=== PATIENT | female | born 1950 | race Caucasian/White ===

== ENCOUNTER 2020-05-20 12:25 | Outpatient (CLI) | payer MEDICARE, SELFPAY ==
--- NOTE | ~2020-05-20 | MM_ITS ---
EXAMINATION: MM screening [facility] BI w felix HISTORY: Screening mammogram TECHNIQUE: Craniocaudal and mediolateral oblique 3-D tomosynthesis images were obtained and synthetic 2-D images were generated. CAD analysis was submitted and interpreted. COMPARISON: 04/02/2019, 06/21/2017 BREAST PARENCHYMAL COMPOSITION: The breasts are heterogeneously dense, which may obscure small masses . FINDINGS: There is no evidence of suspicious mass, calcification, or architectural distortion to sugg est malignancy in either breast. There has been no suspicious interval change. IMPRESSION: 1. No mammographic evidence of malignancy. 2. Recommend routine screening mammography in one year. BI-RADS Category 1: Negative Reviewed, dictated and finalized at location A.
--- NOTE | ~2020-05-20 | DEXA_ITS ---
BMD(1) Young-Adult(2) Age-Matched(3) Region (g/cm2) T-score Z-score WHO Classification L1 0.986 -1.3 0.5 Osteopenia L2 1.367 1.3 3.1 Normal L3 1.514 2.4 4.2 Normal L4 1.513 2.3 4.1 Normal L1-L4 1.355 1.3 3.1 Normal Trend: L1-L4 Change vs Change vs Measured Age BMD(1) Baseline Previous Date (years) (g/cm2) (%) (%) 05/20/2020 [age] 1.355 5.2* 0.4 04[age]05/2018 68.0 1.350 4.8* 4.8* 10/03/2015 [age] 1.288 baseline - * - Indicates significant change based on 95% confidence interval. 1 - Statistically 68% of repeat scans fall within 1SD (+- 0.010 g/cm2 for AP Spine L1-L4) 2 - [facility] (Combined NHANES (ages 20-30) / [place] (ages 20-40)) AP Spine Reference Population (v112) 3 - Matched for Age, Weight (females 25-100 kg), Ethnic 11 - World Health Organization - Definition of Osteoporosis and Osteopenia for Women: Normal = T-score at or above -1.0 SD; Osteopenia = T-score between -1.0 and -2.5 SD; Osteoporosis = T-score at or below -2.5 SD; (WHO definitions only apply when a young healthy Women reference database is used to determine T-scores.) Printed: 05/20/2020 3:14:39 PM (13.60)76:3.00:50.00:12.0 0.00:9.78 0.60x1.05 18.5:%Fat=13.7% 0.00:0.00 0.00:0.00 Filename: [id number] Scan Mode: Standard;OneScan 37.0 Sprout [id number] BMD(1) Young-Adult(2,7) Age-Matched(3) Region (g/cm2) T-score Z-score WHO Classification Neck Left 0.802 -1.7 0.0 Osteopenia Right 0.936 -0.7 1.0 Normal Mean 0.869 -1.2 0.5 Osteopenia Difference 0.134 1.0 1.0 - Total Left 0.906 -0.8 0.7 Normal Right 0.972 -0.3 1.2 Normal Mean 0.939 -0.5 0.9 Normal Difference 0.067 0.5 0.5 - Hip [place] Length Comparison (mm) (Right = 115.4 mm) (Mean = 106.8 mm) (Left = 115.1 mm) Trend: Total Mean Change vs Change vs Measured Age BMD(1) Baseline Previous Date (years) (g/cm2) (%) (%) 05/20/2020 70.2 0.939 baseline - 1 - Statistically 68% of repeat scans fall within 1SD (+- 0.010 g/cm2 for DualFemur Total) 2 - [place] (Combined NHANES (ages 20-30) / [place] (ages 20-40)) Femur Reference Population (v112) 3 - Matched for Age, Weight (females 25-100 kg), Ethnic 7 - DualFemur Total T-score difference is 0.5. Asymmetry is None. 11 - World Health Organization - Definition of Osteoporosis and Osteopenia for Women: Normal = T-score at or above -1.0 SD; Osteopenia = T-score between -1.0 and -2.5 SD; Osteoporosis = T-score at or below -2.5 SD; (WHO definitions only apply when a young healthy Women reference database is used to determine T-scores.) Printed: 05/20/2020 3:14:40 PM (13.60); Filename: [id number]; Right Femur; 17.6:%Fat=22.1%; Neck Angle (deg)= 51; Scan Mode: Standard 37.0 uGy; Left Femur; 17.0:%Fat=24.1%; Neck Angle (deg)= 59; Scan Mode: Standard 37.0 uGy Smartsy [id number] Dear Ubaldo Galindo, Your patient Sonia Oquendo completed a BMD test on 05/20/2020 using the Smartsy DXA System (analysis version: 13.60) manufactured by [employer]. The following summarizes the results of our evaluation. PATIENT BIOGRAPHICAL: Name: Sonia Oquendo Date: 1950 H
== END 2020-05-20 12:26 | disposition home or self-care (01) ==
LOC: CHSIMG 12:30
PROVIDERS: PCP Internal Medicine; Visit Provider Internal Medicine
DX: Z12.31 Encounter for screening mammogram for malignant neoplasm of breast (principal); M81.0 Age-related osteoporosis without current pathological fracture
CPT/HCPCS: 77063; 77067; 77080

== ENCOUNTER 2021-06-12 14:21 | Outpatient (CLI) | payer MEDICARE, SELFPAY ==
--- NOTE | ~2021-06-12 | MM_ITS ---
EXAMINATION: MM screening [facility] BI w felix HISTORY: Screening mammogram TECHNIQUE: Craniocaudal and mediolateral oblique 3-D tomosynthesis images were obtained and synthetic 2-D images were generated. CAD analysis was submitted and interpreted. COMPARISON: 05/20/2020, 04/02/2019, 06/21/2017 bilateral digital screening mammogram examinations BREAST PARENCHYMAL COMPOSITION: The breasts are heterogeneously dense, which may obscure small masses . FINDINGS: There is no evidence of suspicious mass, calcification, or architectural distortion to sugg est malignancy in either breast. There has been no suspicious interval change. IMPRESSION: 1. No mammographic evidence of malignancy. 2. Recommend routine screening mammography in one year. BI-RADS Category 1: Negative Reviewed, dictated and finalized at location A.
== END 2021-06-12 14:22 | disposition home or self-care (01) ==
LOC: CHSIMG 14:23
PROVIDERS: PCP Internal Medicine; Visit Provider Internal Medicine
DX: Z12.31 Encounter for screening mammogram for malignant neoplasm of breast (principal)
CPT/HCPCS: 77063; 77067

== ENCOUNTER 2021-07-29 17:36 | Emergency (ER) | payer MEDICARE, SELFPAY ==
[2021-07-29 17:40] VITALS: BP 119/80; PULSE 94; RESP 20; TEMP 36.3; O2SAT 100
--- NOTE | 2021-07-29 18:17 | ED.GENADULT ---
HPI - General Adult General Chief complaint: Upper Respiratory Infection Stated complaint: tongue is coated white,congestion Source: patient and family Mode of arrival: ambulatory Limitations: no limitations History of Present Illness HPI narrative: Sonia is a 71F with a PMH of hypothyroidism that presented to the emergency department with 10 days of worsening URI symptoms. She has had worsening sinus congestion, rhinorrhea, fullness in her left ear, post nasal drip and a cough. She denies fevers, chills, N/V, CP and SOB. She is not vaccinated against COVID but denies exposure. Related Data Home Medications Medication Instructions Recorded Confirmed levothyroxine 88 mcg PO DAILY 07/29/21 07/29/21 Allergies Allergy/AdvReac Type Severity Reaction Status Date / Time Sulfa (Sulfonamide Allergy Unknown Unverified 07/15/14 14:59 Antibiotics) Review of Systems Constitutional: Constitutional: Denies chills, Denies fatigue, Denies fever(s) and Denies weakness Eyes: Eyes: Reports no additional eye complaints ENT: Reports as per HPI Cardiovascular: Cardiovascular: Reports no additional cardiovascular complaints Respiratory: Respiratory: Reports no additional respiratory complaints Gastrointestinal: Gastrointestinal: Reports no additional gastrointestinal complaints Genitourinary: Genitourinary: Reports no additional female genitourinary complaints Musculoskeletal: Musculoskeletal: Reports no additional musculoskeletal complaints Integumentary/Breasts: Skin/Breast: Reports system reviewed and no additional complaints, except as docu Neurologic: Reports system reviewed and no additional complaints, except as documented Psychiatric: Psychiatric: Reports no additional psychiatric complaints Endocrine: Endocrine: Reports no additional endocrine complaints Hematologic/Lymphatic: Hematologic/Lymphatic: Reports no additional hematologic/lymphatic complaints Allergic/Immunologic: Allergic/Immunologic: Reports no additional allergic/immunologic complaints Exam Const: General: no acute distress and alert Orientation/consciousness: patient oriented x3 Limitations: No altered mental status HENMT: Head: normal to inspection Other: normocephalic, atrauamtic. Air fluid levels behind the left TM. TTP over the frontal sinuses and maxillary sinuses Eyes: Conjunctivae: conjunctivae normal Pupils: Equal, round and reactive pupils present Neck: Neck: normal visual inspection Chest: Chest palpation & inspection: normal inspection of the chest Resp: Effort & Inspection: normal respiratory effort, not labored and not tachypneic Auscultation: clear to auscultation bilaterally Cardio: Rate: regular rate Rhythm: regular rhythm Heart sounds: no murmurs : General: Yes no CVA tenderness Skin: Other: maculopapular rash over the stomach and low back Neuro: General: patient oriented x3 and moves all extremities Extrem: General: normal to inspection Psych: Appearance: grossly normal Mental Status: mental status grossly normal Course Course Emergency Course: Ordered COVID test. COVID positive Vital Signs Vital signs: Vital Signs Temperature 97.4 F L 07/29/21 17:40 Pulse Rate 94 07/29/21 17:40 Respiratory Rate 20 07/29/21 17:40 Blood Pressure 119/80 07/29/21 17:40 Pulse Oximetry 100 07/29/21 17:40 Temperature 97.4 F L 07/29/21 17:40 Pulse Rate 94 07/29/21 17:40 Respiratory Rate 20 07/29/21 17:40 Blood Pressure 119/80 07/29/21 17:40 Pulse Oximetry 100 07/29/21 17:40 Medical Decision Making Vital Signs Vital Signs: Vital Signs Temperature 97.4 F L 07/29/21 17:40 Pulse Rate 94 07/29/21 17:40 Respiratory Rate 20 07/29/21 17:40 Blood Pressure 119/80 07/29/21 17:40 Pulse Oximetry 100 07/29/21 17:40 Temperature 97.4 F L 07/29/21 17:40 Pulse Rate 94 07/29/21 17:40 Respiratory Rate 20 07/29/21 17:40 Blood Pressure 119/80 07/29/21 17:40 P
[2021-07-29 18:54] LABS: SARS-CoV-2 Ag Positive (Negative)
== END 2021-07-29 19:06 | disposition home or self-care (01) ==
PROVIDERS: Emergency Provider Family Medicine; PCP Internal Medicine
DX: U07.1 COVID-19 (principal)
CPT/HCPCS: 87426; 99282; 99283; C9803

== ENCOUNTER 2022-07-21 09:30 | Outpatient (CLI) | payer MEDICARE, SELFPAY ==
--- NOTE | ~2022-07-21 | DEXA_ITS ---
Bone Density Report Name: SHIKHA OLIVEIRA Age: 72 Sex: Female Ethnicity: White Date of : 1950 Indication: postmenopausal; screening for osteoporosis; height loss; Referring Provider: Ubaldo Galindo Study: Bone densitometry was performed. Exam Date: July 21, 2022 Accession number: [id number] Bone Density: Region BMD T-score Z-score Classification AP Spine(L1, L2, L3) 1.077 0.5 2.6 Normal Femoral Neck (Left) 0.700 -1.3 0.5 Osteopenia Total Hip (Left) 0.825 -1.0 0.6 Normal Femoral Neck (Right) 0.778 -0.6 1.2 Normal Total Hip (Right) 0.897 -0.4 1.1 Normal Femoral Neck Mean 0.739 -1.0 0.8 Normal Total Hip Mean 0.861 -0.7 0.9 Normal World Health Organization criteria for BMD impression classify patients as: Normal (T-score at or above -1.0), Osteopenia (T-score between -1.0 and -2.5), or Osteoporosis (T-score at or below -2.5). 10-year Fracture Risk(1): Major Osteoporotic Fracture 8.9% Hip Fracture 1.2% Reported Risk Factors: [place] (), Neck BMD=0.700, BMI=22.3 (1) FRAX(R) Version 3.08. Fracture probability calculated for an untreated patient. Fracture probability may be lower if the patient has received treatment. Clinical Information Provided by Patient: Has used the following medications: Vitamin D, levothyroxine Patient maximum height was 66 Menopause Age: 54 Drinks caffeinated beverages Onset of menses at age 16 Number of children 2 Impression: The patient has low bone mass, based on the Left Femoral Neck T-score. Discussion: BONE DENSITY IS LOW AT ONE OR MORE SKELETAL SITES. This patient's lowest T-score is low at one or more skeletal sites. It meets the World Health Organization's (WHO) criteria for ?low bone mass? (T-score between -1.0 and -2.5). The patient's 10-year risk of fracture as calculated by FRAX is less than the threshold where pharmacological therapy is recommended by the National Osteoporosis Foundation (NOF). However, all treatment decisions require clinical judgment and consideration of individual patient factors, including patient preferences, comorbidities, previous drug use, risk factors not captured in the FRAX model (e.g., frailty, falls, vitamin D deficiency, increased bone turnover, interval significant decline in bone density) and possible under or overestimation of fracture risk by FRAX. The patient should follow a healthful lifestyle (good nutrition with adequate calcium and vitamin D, and appropriate weight-bearing exercise). Follow-Up: Consider repeating this study in 2 to 3 years to reassess this patient's status, or sooner if there is some new clinical indication. Reported by: Dr. Vimal Bauer on 07/21/2022 10:06:00 AM. Reviewed, dictated and final
--- NOTE | ~2022-07-21 | MM_ITS ---
EXAMINATION: MM screening [facility] BI w felix HISTORY: Screening mammogram TECHNIQUE: Craniocaudal and mediolateral oblique 3-D tomosynthesis images were obtained and synthetic 2-D images were generated. CAD analysis was submitted and interpreted. COMPARISON: 06/12/2021, 05/20/2020, 04/02/2019 bilateral screening mammogram examinations BREAST PARENCHYMAL COMPOSITION: The breasts are heterogeneously dense, which may obscure small masses . FINDINGS: There is no evidence of suspicious mass, calcification, or architectural distortion to sugg est malignancy in either breast. There has been no suspicious interval change. IMPRESSION: 1. No mammographic evidence of malignancy. 2. Recommend routine screening mammography in one year. BI-RADS Category 1: Negative Reviewed, dictated and finalized at location A. 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
== END 2022-07-21 09:31 | disposition home or self-care (01) ==
LOC: CHSIMG 09:31
PROVIDERS: PCP Internal Medicine; Visit Provider Internal Medicine
DX: M81.0 Age-related osteoporosis without current pathological fracture (principal); Z12.31 Encounter for screening mammogram for malignant neoplasm of breast
CPT/HCPCS: 77063; 77067; 77080

== ENCOUNTER 2024-10-05 10:42 | Outpatient (CLI) | payer MEDICARE, SELFPAY ==
--- NOTE | ~2024-10-05 | MM_ITS ---
EXAMINATION: MM screening [facility] BI w felix HISTORY: Screening TECHNIQUE: Craniocaudal and mediolateral oblique 3-D tomosynthesis images were obtained and synthetic 2-D images were generated. CAD analysis was submitted and interpreted. COMPARISON: Comparison to multiple prior studies sequentially, with oldest reviewed study dated 05/24. BREAST PARENCHYMAL COMPOSITION: Dense: The breasts are extremely dense, which lowers the sensitivity of mammography. FINDINGS: There is no evidence of suspicious mass, calcification, or architectural distortion to sugg est malignancy in either breast. There has been no suspicious interval change. IMPRESSION: 1. No mammographic evidence of malignancy. 2. Recommend routine screening mammography in one year. BI-RADS Category 1: Negative Reviewed, dictated and finalized at location B. VISUAL DESIGNER
--- NOTE | ~2024-10-05 | XR_ITS ---
HISTORY: LT HAND PAIN RADIATES UP TO SHOULDER [id number] COMPARISON: None TECHNIQUE: 3 views of the left hand were performed. FINDINGS: No acute fracture is identified. 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 Degenerative disease is identified within the first carpometacarpal joint space. The remaining visualized joint spaces are preserved. The carpal arcs are intact. Mild radiocarpal joint space narrowing with sclerosis of the distal radius is present. Bone mineralization is age-appropriate No significant soft tissue swelling. No radiopaque foreign body is identified. IMPRESSION: Degenerative disease, without acute fracture or dislocation within the left hand, as detailed above. Reviewed, dictated and finalized at location A. SCRIPT FRONT END DEVELOPER IMPRESSION: Degenerative disease, without acute fracture or dislocation within the left marsh d, as detailed above.
--- NOTE | ~2024-10-05 | DEXA_ITS ---
Bone Density Report Name: SHIKHA OLIVEIRA Age: 74 Sex: Female Ethnicity: White Date of : 1950 Indication: hyperparathyroidism; Referring Provider: Ubaldo Galindo Study: Bone densitometry was performed. Exam Date: October 05, 2024 Accession number: [id number] Bone Density: Region BMD T-score Z-score Classification AP Spine(L1, L2, L3) 1.084 0.6 2.8 Normal Femoral Neck (Left) 0.683 -1.5 0.4 Osteopenia Total Hip (Left) 0.843 -0.8 0.8 Normal Femoral Neck (Right) 0.762 -0.8 1.2 Normal Total Hip (Right) 0.903 -0.3 1.3 Normal Femoral Neck Mean 0.723 -1.1 0.8 Osteopenia Total Hip Mean 0.873 -0.6 1.1 Normal World Health Organization criteria for BMD impression classify patients as: Normal (T-score at or above -1.0), Osteopenia (T-score between -1.0 and -2.5), or Osteoporosis (T-score at or below -2.5). 10-year Fracture Risk(1): Major Osteoporotic Fracture 9.6% Hip Fracture 1.7% Reported Risk Factors: [place] (), Neck BMD=0.683, BMI=21.0 (1) FRAX(R) Version 3.08. Fracture probability calculated for an untreated patient. Fracture probability may be lower if the patient has received treatment. Previous Exams: Region Exam Age BMD T-score BMD Change BMD Change Date g/cm2 vs Baseline vs Previous AP Spine (L1-L3) 10/05/2024 74 1.084 0.6 -0.032 (-2.8%) 0.008 (0.7%) 07/21/2022 72 1.077 0.5 -0.039 (-3.5%) -0.067 (-5.8%) 05/20/2020 70 1.143 1.1 0.027 (2.5%)*! -0.012 (-1.0%) 04/05/2018 68 1.155 1.2 0.039 (3.5%)*! 0.039 (3.5%)* 10/03/2015 65 1.116 0.9 Total Hip(Left) 10/05/2024 74 0.843 -0.8 -0.019 (-2.2%) 0.018 (2.1%) 07/21/2022 72 0.825 -1.0 -0.037 (-4.3%) -0.017 (-2.1%) 05/20/2020 70 0.843 -0.8 -0.019 (-2.2%) -0.015 (-1.8%) 04/05/2018 68 0.858 -0.7 -0.004 (-0.5%) -0.004 (-0.5%) 10/03/2015 65 0.862 -0.7 Total Hip(Right) 10/05/2024 74 0.903 -0.3 -0.004 (-0.4%) 0.007 (0.7%) 07/21/2022 72 0.897 -0.4 -0.011 (-1.2%) -0.011 (-1.2%) 05/20/2020 70 0.907 -0.3 *Denotes significance at 95% confidence level, LSC for AP Spine = 0.022 g/cm2, LSC for Total Hip = 0.027 g/cm2 # Denotes dissimilar scan types or analysis methods Clinical Information Provided by Patient: Has used the following medications: Vitamin D Has the following medical conditions: Hyperparathyroidism Patient maximum height was 66 Menopause Age: 54 Drinks caffeinated beverages Onset of menses at age 15 Number of children 2 Impression: The patient has low bone mass, based on the Left Femoral Neck T-score. No significant bone loss was observed. Discussion: BONE DENSITY IS LOW AT ONE OR MORE SKELETAL SITES. This patient's lowest T-score is low at one or more skeletal sites. It meets the World Health Organization's (WHO) criteria for ?low bone mass? (T-score between -1.0 and -2.5). The patient's 10-year risk of fracture as calculated by FRAX is less than the threshold where pharmacological therapy is recommended by the National Osteoporosis Foundation (NOF). However, all treatment decisions require clinical judgment and consideration of individual patient factors, including patient preferences, comorbidities, previous drug use, risk factors not captured in the FRAX model (e.g., frailty, falls, vitamin D deficiency, increased bone turnover, interval significant decline in bone density) and possible under or overestimation of fracture risk by FRAX. The patient should follow a healthful lifestyle (good nutrition with adequate calcium and vitamin D, and appropriate weight-bearing exercise). Follow-Up: Consider repeating this study in 2 to 3 years to reassess this patient's status, or sooner if there is some new clinical indication. Reported by: LEDY on 10/05/2024 11:12:00 AM. Reviewed, dictated and finalized at location A.
--- OUTSIDE RECORDS SUMMARY | 2024-10-05 10:52 | XMS_ITS | Patient Health Summary ---
Author Organization [facility] Address [address] [place] [address] Care Team Providers Care Statistician Name Role Phone Unavailable Primary Care Provider Unavailabl e Note from [facility],non-owned Affiliates and Associated Physician Practices is amultiple site organization consisting of ambulatory clinics and hospital sitesin [place], [place], [place] and [place]. This disclosure is being madepursuant to the Care Everywhere program and may not contain all information available regarding this patient. Last updated 18.[facility] Allergies No known active allergies Medications * Be aware that medications may not be up to date on this document. Alwaysverify current medications with the patient. * azelastine (ASTELIN) 0.1 % nasal spray(Started 11/04/2021) * fluticasone propionate (FLONASE) 50 MCG/ACT nasal spray(Started 08/26/2021) * levothyroxine (SYNTHROID) 88 MCG tablet(Started 12/08/2021) Take 1 tablet by mouth once daily * omeprazole (PRILOSEC) 20 MG capsule(Started 12/09/2021) Take 1 capsule by mouth once daily * pseudoephedrine (NEXAFED) 30 MG tablet Take 30 mg by mouth every 6 hours as needed for Nasal Congestion * acetaminophen (TYLENOL) 500 MG tablet Take 500 mg by mouth once daily as needed for Fever or Pain Maximum allowable Acetaminophen amount = 4 Grams (4000 mg) / 24 hours. * fluconazole (DIFLUCAN) 150 MG tablet(Started 02/16/2022) Take 1 tablet daily for 10 days, may refill x 1 1 refill by 02/16/2023 Social History Tobacco Use Types Packs/Day Years Used Date Smoking Tobacco: Never Smokeless Tobacco: Never Sex and Gender Information Value Date Recorded Sex Assigned at Not on file Gender Identity Not on file Sexual Orientation Not on file Last Filed Vital Signs Vital Sign Reading Time Taken Comments Blood Pressure 130/81 02/16/2022 8:43 AM CDT Pulse 52 02/16/2022 8:43 AM CDT Temperature 36.7 C (98.1 F) 02/16/2022 8:43 AM CDT Respiratory Rate - - Oxygen Saturation - - Inhaled Oxygen Concentration - - Weight 60.8 kg (134 lb) 02/16/2022 8:43 AM CDT Height 167.6 cm (5' 6 ) 02/16/2022 8:43 AM CDT Body Mass Index 21.63 02/16/2022 8:43 AM CDT Procedures * AZ LARYNGOSCOPY,FLEX FIBER,DIAGNOSTIC(Performed 02/16/2022) Performed for Dysphonia Results * AZ LARYNGOSCOPY,FLEX FIBER,DIAGNOSTIC (02/16/2022 9:23 AM CDT) Narrative Johnnie Gauthier MD - 02/16/2022 9:23 AM CDT Johnnie Gauthier MD 02/16/2022 10:01 AM Procedure Note Endoscopy Type: Laryngoscopy without stroboscopy Endoscope: Flexible 4mm Scope Anesthesia: Lidocaine 2% and Neosynephrine 1/2% (nasal) Procedure Details: The patient was sitting upright in a chair with the head in a slightly anterior sniffing position. The topical anesthesia was administered and then adequate time was allowed for an anesthetic effect. The endoscope was passed thru the bilateral nasal cavities. The tip of the endoscope was positioned in the oropharynx which allowed a complete view of the base of tongue, vallecula, pyriform recesses, epiglottis, bilateral true and false vocal folds, the interarytenoid and post cricoid region, and the immediate subglottis. Findings: TVF mobile bilaterally and without significant bowing or atrophy. TVF covered with small flecks of mucus No significant reflux associated changes. No masses or mucosal lesions. Airway patent Condition: Stable. Patient tolerated procedure well. Complications: None The attending was present for and participated in critical portions of the entirety of the procedure. Byron Marquez MD PROCEDURE/MINOR SURG ICAL ORDERABLES
--- OUTSIDE RECORDS SUMMARY | 2024-10-05 10:52 | XMS_ITS | Clinical Summary ---
Author Organization [facility] Address [address] [place] [address] Care Team Providers Care Dipper And Drier Name Role Phone Unavailable Primary Care Provider Unavailabl e Source Comments [facility],non-owned Affiliates and Associated Physician Practices is amultiple site organization consisting of ambulatory clinics and hospital sitesin [place], [place], [place] and [place]. This disclosure is being madepursuant to the Care Everywhere program and may not contain all information available regarding this patient. Last updated 18.[facility] [employer] Allergies No known active allergies Medications * Be aware that medications may not be up to date on this document. Alwaysverify current medications with the patient. Medication Sig Dispensed Refills Start Date End Date Status azelastine (ASTELIN) 0.1 % nasal spray 11/04/2021 Active fluticasone propionate (FLONASE) 50 MCG/ACT nasal spray 08/26/2021 Active levothyroxine (SYNTHROID) 88 MCG tablet Take 1 tablet by mouth once daily 12/08/2021 Active omeprazole (PRILOSEC) 20 MG capsule Take 1 capsule by mouth once daily 12/09/2021 Active pseudoephedrine (NEXAFED) 30 MG tablet Take 30 mg by mouth every 6 hours as needed for Nasal Congestion Active acetaminophen (TYLENOL) 500 MG tablet Take 500 mg by mouth once daily as needed for Fever or Pain Maximum allowable Acetaminophen amount = 4 Grams (4000 mg) / 24 hours. Active fluconazole (DIFLUCAN) 150 MG tablet Take 1 tablet daily for 10 days, may refill x 1 10 tablet 1 02/16/2022 Active Social History Tobacco Use Types Packs/Day Years [...] Mass Index 21.63 02/16/2022 8:43 AM CDT Plan of Treatment Health Maintenance Due Date Last Done Comments BONE DENSITY TESTING 1950 COLOGUARD (AGES 45-75) - COL ON CA SCREENING 1950 COLON MONITORING 1950 COLONOSCOPY - COLON CA SCREENING 1950 CT COLONOGRAPHY - COLON CA SCREENING 1950 Colorectal Cancer Screening 1950 FIT - COLON CA SCREENING 1950 FLEX SIG - COLON CA SCREENING 1950 LIPID TESTING 1950 MAMMOGRAM 1950 HEPATITIS C SCREENING 03/03/1970 DTAP/TDAP/TD VACCINES (1 - Tdap) 1971 PNEUMOCOCCAL VACCINE 50+ (1 of 1 - PCV) 2002 ZOSTER VACCINE (1 of 2) 2002 COVID-19 VACCINE ( - 2023-2 5 season) 2024 INFLUENZA VACCINE (#1) 2024 DEPRESSION SCREENING 08/22/2024 MEDICARE AWV CALENDAR YEAR 2024 Respiratory Syncytial Virus (RSV) Vaccine Pt: or over 60 yrs (1 - 1-dose 75+ series) 2027 HEPATITIS B VACCINE Aged Out No longe r eligible based on patient's age to complete this topic HIB VACCINE Aged Out No longer eligi ble based on patient's age to complete this topic HPV VACCINE Aged Out No longer eligi ble based on patient's age to complete this topic MENINGOCOCCAL (Group B) VACCINE Aged Out No longer eligible based on patient's age to complete this topic MENINGOCOCCAL VACCINE Aged Out No ngoc chanda eligible based on patient's age to complete this topic
--- OUTSIDE RECORDS SUMMARY | 2024-10-05 10:52 | XMS_ITS | Clinical Summary ---
Author Organization [facility] Address [facility], [facility] [address] [place] [address] Care Team Providers Care Health Plan Specialist Name Role Phone Unavailable Primary Care Provider Unavailabl e Social History Tobacco Use Types Packs/Day Years Used Date Smoking Tobacco: Never Assessed Comments Unknown Sex and Gender Information Value Date Recorded Sex Assigned at Not on file Legal Sex Female 10:27 PM CDT Gender Identity Not on file Sexual Orientation Not on file Plan of Treatment Health Maintenance Due Date Last Done Comments Colorectal Cancer Screening Colonoscopy (10 Years) 1950 Hepatitis C 1970 DTaP, Tdap and Td Vaccines ( 1 - Tdap) 1971 Mammogram Screening 1992 Zoster Vaccines (1 of 2) 2002 Dexa Scan (General) 2017 Pneumococcal Vaccine: 65+ Ye ars (1 of 1 - PCV) 2017 COVID-19 Vaccine (2023-2 5 season) 2024 Influenza Adult (#1) 2024 RSV Immunization or 60+ Years (1 - 1-dose 75+ series) 2027 Meningococcal B Vaccine Aged Out No l onger eligible based on patient's age to complete this topic Meningococcal Vaccine Aged Out No ngoc chanda eligible based on patient's age to complete this topic RSV Immunizations Under 20 Months Aged Out No longer eligible based on patient's age to complete this topic
--- OUTSIDE RECORDS SUMMARY | 2024-10-05 10:52 | XMS_ITS | Referral Summary ---
Author Organization [facility] Address [address] [place] [address] Care Team Providers Care Energy Broker Name Role Phone Unavailable Primary Care Provider Unavailabl e Source Comments [facility],non-owned Affiliates and Associated Physician Practices is amultiple site organization consisting of ambulatory clinics and hospital sitesin [place], [place], [place] and [place]. This disclosure is being madepursuant to the Care Everywhere program and may not contain all information available regarding this patient. Last updated 18.[facility] Allergies No known active allergies Medications * [...] 02/16/2022 8:43 AM CDT Plan of Treatment Not on file
== END 2024-10-05 10:43 | disposition home or self-care (01) ==
LOC: CHSIMG 10:43
PROVIDERS: PCP Internal Medicine; Visit Provider Internal Medicine
DX: Z12.31 Encounter for screening mammogram for malignant neoplasm of breast (principal); Z78.0 Asymptomatic menopausal state; M79.642 Pain in left hand; M85.89 Other specified disorders of bone density and structure, multiple sites
CPT/HCPCS: 73130; 77063; 77067; 77080